=== PATIENT | male | born 1970 | race Caucasian/White ===

== ENCOUNTER 2017-02-11 13:50 | Emergency (ER) | payer SELFPAY ==
[~2017-02-11] VITALS: Ht 195.6 cm; Wt 95.4 kg
[2017-02-11] MEDS ORDERED: ALBUTEROL/IPRATROPIUM 2.5MG/0.5MG, 3 ML NPPB ONE (14:30)
[2017-02-11 14:45] VITALS: BP 134/93
== END 2017-02-11 15:47 | disposition home or self-care (01) ==
LOC: ED 15:20
DX: J20.9 Acute bronchitis, unspecified (principal); J01.90 Acute sinusitis, unspecified; B96.89 Other specified bacterial agents as the cause of diseases classified elsewhere
CPT/HCPCS: 71020; 93005; 99284; J7512